=== PATIENT | female | born 1980 | race Caucasian/White ===

== ENCOUNTER 2017-12-25 09:58 | Day surgery (SDC) | payer OTHER ==
[2017-12-25 10:52] VITALS: BMI 37.2
[2017-12-25] MEDS ORDERED: PROPOFOL 20 ML ONE ×2 (10:58)
[2017-12-25] MEDS ORDERED: LIDOCAINE HCL/PF 2% SDV 5ML VIAL ONE (10:58)
--- NOTE | 2017-12-25 11:31 | PROC ---
Endoscopy Procedure Endoscopy procedure completed. Please see scanned procedure report.
[2017-12-25 11:49] VITALS: TEMP 98.6
[2017-12-25 12:20] VITALS: BP 117/76; PULSE 77
--- NOTE | 2017-12-26 13:07 | PATH ---
Surgical Pathology Report Patient Name: DESHAWN THOMPSON [facility]. Rec. #: [id number] /Age/Gender: 1980 (Age: 37) / F Account: [id number] Location: U-ENDOSCOPY Taken: 12/25/2017 Received: 12/25/2017 Reported: 12/26/2017 Physicians: Anatoliy Brito M.D. Specimen(s) Received A: BX DUODENUM B: BX ANTRUM AND BODY C: BX GE JUNCTION Clinical History Epigastric pain Gastritis Final Diagnosis A. DUODENUM, SECOND PORTION, BIOPSY: DUODENAL MUCOSA WITH NO PATHOLOGIC CHANGES. NO HISTOLOGIC EVIDENCE OF GLUTEN SENSITIVE ENTEROPATHY (CELIAC SPRUE) IDENTIFIED. B. STOMACH, ANTRUM AND BODY, BIOPSY: GASTRIC ANTRAL AND FUNDIC MUCOSA WITH NO SIGNIFICANT PATHOLOGIC CHANGES. IMMUNOSTAIN FOR H. PYLORI IS NEGATIVE. C. GE JUNCTION, BIOPSY: SQUAMOUS MUCOSA WITH PAPILLOMATOSIS AND CHRONIC INFLAMMATION SUGGESTIVE OF REFLUX ESOPHAGITIS. NO INTESTINAL METAPLASIA IDENTIFIED (NO POE'S IDENTIFIED). Electronically Signed Balwinder Mckeon M.D. Gross Description A. Received in formalin, labeled "second portion of duodenum" are 2 naqvi, irregular portions of soft tissue measuring 0.2 cm. in greatest dimension. The specimens are submitted in toto in one cassette. B. Received in formalin, labeled "antrum/body" are 2 naqvi, irregular portions of soft tissue measuring 0.2-0.4 cm. in greatest dimension. The specimens are submitted in toto in one cassette. C. Received in formalin, labeled "GE junction" is a naqvi, irregular portion of soft tissue measuring 0.3 cm. in greatest dimension. The specimen is submitted in toto in one cassette. [facility]/12/25/2017 [facility]/12/25/2017
== END 2017-12-25 12:28 | disposition home or self-care (01) ==
LOC: JASU-ENDO 09:58
PROVIDERS: ATTEND Internal Medicine Gastroenterology
PROC: 0DB68ZX Excision of Stomach, Via Natural or Artificial Opening Endoscopic, Diagnostic (ICD-10-PCS; 2017-12-25)
PROC: 0DB58ZX Excision of Esophagus, Via Natural or Artificial Opening Endoscopic, Diagnostic (ICD-10-PCS; 2017-12-25)
PROC: 0DB98ZX Excision of Duodenum, Via Natural or Artificial Opening Endoscopic, Diagnostic (ICD-10-PCS; principal; 2017-12-25 11:00)
DX: K29.70 Gastritis, unspecified, without bleeding (principal)
CPT/HCPCS: 84703; 88305-TC; 88342-TC

== ENCOUNTER 2021-12-19 05:31 | Day surgery (SDC) | payer OTHER ==
[2021-12-12 14:50] VITALS: BMI 37.2
[2021-12-19 10:47] VITALS: TEMP 97.5
[2021-12-19 11:13] VITALS: BP 108/66
[2021-12-19 11:30] VITALS: PULSE 66
[2021-12-19 12:29] LABS: ALBUMIN 3.7 g/dl (3.4-5.0)
[2021-12-19 12:32] LABS: BILIRUBIN,DIRECT 0.2 mg/dL (0.0-0.2)
[2021-12-19 12:34] LABS: BILIRUBIN,TOTAL 0.6 mg/dL (0.2-1); TOT PROT 7.1 g/dl (6.4-8.2)
== END 2021-12-19 11:39 | disposition home or self-care (01) ==
LOC: JASU-ENDO 05:31
PROVIDERS: ATTEND Internal Medicine Gastroenterology
PROC: 0DB68ZX Excision of Stomach, Via Natural or Artificial Opening Endoscopic, Diagnostic (ICD-10-PCS; 2021-12-19)
PROC: 0DB28ZX Excision of Middle Esophagus, Via Natural or Artificial Opening Endoscopic, Diagnostic (ICD-10-PCS; 2021-12-19)
PROC: 0DB48ZX Excision of Esophagogastric Junction, Via Natural or Artificial Opening Endoscopic, Diagnostic (ICD-10-PCS; principal; 2021-12-19 09:15)
DX: K29.50 Unspecified chronic gastritis without bleeding (principal)
CPT/HCPCS: 36415; 80076; 81025; 86708; 86803; 87340; 87517; 88305-TC; 88342-TC